=== PATIENT | female | born 1950 | race Caucasian/White ===

== ENCOUNTER → 2023-11-14 18:07 | Outpatient (REF) | payer MEDICARE, SELFPAY | LOC: WDC 18:07 | PROVIDERS: ATTENDING PHYSICIAN Internal Medicine | DX: Z12.31 Encounter for screening mammogram for malignant neoplasm of breast (principal) | CPT/HCPCS: 77063; 77067 ==

== ENCOUNTER → 2024-11-16 12:26 | Outpatient (REF) | payer MEDICARE, SELFPAY | LOC: WDC 12:26 | PROVIDERS: ATTENDING PHYSICIAN Internal Medicine | DX: Z12.31 Encounter for screening mammogram for malignant neoplasm of breast (principal) | CPT/HCPCS: 77063; 77067 ==

== ENCOUNTER 2025-03-23 06:34 | Day surgery (SDC) | payer MEDICARE, SELFPAY | END 2025-03-23 13:23 | disposition home or self-care (01) | LOC: GI 06:34 | PROVIDERS: ATTENDING PHYSICIAN Internal Medicine | DX: Z12.11 Encounter for screening for malignant neoplasm of colon (principal); K64.9 Unspecified hemorrhoids; K63.89 Other specified diseases of intestine; K57.30 Diverticulosis of large intestine without perforation or abscess without bleeding; D12.0 Benign neoplasm of cecum; Z86.0101 Personal history of adenomatous and serrated colon polyps | CPT/HCPCS: 45380; 88305 ==

== ENCOUNTER 2025-08-07 18:43 | Inpatient (IN) | payer MEDICARE, SELFPAY ==
[2025-08-07] VITALS (12 sets, daily range): BP systolic 116–150; BP diastolic 54–87; BMI 26.8; BMI 25.9
[2025-08-07] MEDS: NSS 1000 IV ×2 (12:23→21:16)
[2025-08-07] MEDS: ZOFRAN 4 MG IV (12:30)
--- NOTE | 2025-08-07 12:31 | ED.GENMED ---
History of Present Illness
<Everett Yo MD - Last Filed: 08/07/25 15:42>
General
Chief Complaint: Abdominal Symptoms
Source: patient
Exam Limitations: none
Time Seen by Provider: 08/07/25 12:08
Nursing documentation reviewed up to this point in time: agreed with
History of Present Illness
History of Present Illness:
74-year-old female with past medical history as noted significant for prior colonic resection, hiatal hernia repair, prior hysterectomy who presents to the emergency department for evaluation of abdominal pain. Patient reports symptoms started
around 2 AM, woke her up from sleep and have been constant since that time. Pain located in the upper abdomen and radiates across. No exacerbating relieving factors. She reports profuse nonbloody vomitus this morning. She denies any diarrhea or
constipation�did not have a bowel movement today. She denies any fever or chills. No urinary symptoms. She said she had a similar episode of pain while in [place] 7 years ago�she says that she was told that she had 'twisting of the stomach' and
required emergency surgery.
Past History
<Everett Yo MD - Last Filed: 08/07/25 15:42>
Past History
ED Past Medical History: Negative Asthma, HTN, Hypercholesterolemia or NIDDM
ED Past Surgical History: Appendectomy, Gynecological (Tubel) and Other (Abscess of colon removed)
Social History
Tobacco: Non-smoker
Alcohol: Occasional
Personal:
Living: alone
Employment: Employed
Review of Systems
<Everett Yo MD - Last Filed: 08/07/25 15:42>
Review of Systems
All Other Systems: ROS reviewed and negative except as documented in HPI and ROS
Constitutional: Denies fever or chills
Respiratory: Denies trouble breathing
Cardiac: Denies chest pain
ABD/GI: Reports abdominal pain, nausea and vomiting; Denies diarrhea or constipated
: Denies dysuria, frequency, flank pain or bleeding
Musculoskeletal: Denies neck pain or back pain
Neurological: Reports headache; Denies dizzy
Phy Exam
<Everett Yo MD - Last Filed: 08/07/25 15:42>
Physical Exam
Physical Exam:
General: Awake, alert; sitting up holding emesis bag
Head: Normocephalic, atraumatic
Eyes: Conjunctiva normal, sclera anicteric
Throat: Airway intact, handling secretions
Neck: Trachea midline, supple without meningismus
Lungs: Clear to auscultation bilaterally, no wheezing, rales, rhonchi
Heart: Tachycardia with regular rhythm, no murmurs, gallops, or rubs
Abd: Soft, non distended, tender to palpation right upper quadrant and epigastrium with no peritoneal signs
Neuro: Grossly intact
Skin: Warm and dry
Extremities: Warm and well-perfused
Scores
<Everett Yo MD - Last Filed: 08/07/25 15:42>
Heart Failure Risk
Heart Failure Risk Score: Not Applicable
Heart Score for Chest Pain Patients
STEMI patient?: Not applicable
Withdrawal Assessment of Alcohol
Withdrawal Assessment Completed?: Not applicable
Course
<Everett Yo MD - Last Filed: 08/07/25 15:42>
Orders/Labs/Results
Orders:
Orders
08/07/25 12:22
0.9% Sodium Chloride 1000 ml [Nss] 1,000 ml IV BOLUS
08/07/25 12:24
CT Abd/pelvis W Iv Cont Urgent
Comment:
Reason For Exam: abd pain, N/V
Ondansetron Injectable [Zofran] 4 mg .ROUTE .[facility] ONE
Ondansetron Injectable [Zofran] 4 mg IV NOW STA
08/07/25 12:25
Electrocardiogram (*1) Urgent
Reason for Study: Abdominal Pain
EKG- Treatment ONCE
08/07/25 12:27
Complete Blood Count/With Diff Urgent
Comprehensive Metabolic Panel Urgent
Lactate Level [Lactic Acid] Urgent
Lipase Urgent
Troponin I Urgent
08/07/25 12:50
Urinalysis Reflex To Culture Urgent
Date Specimen was Collected: 08/07/25
Time Specimen was Collected: 12:37
Urine Microscopic Reflex Cult Urgent
08/07/25 14:21
US Abdomen Complete/Upper Urgent
Comment:
Reason For Exam: right sided abd pain, tenderness
08/07/25 15:08
Piperacillin/Tazo 3.375 Gram [Zosyn] 3.375 gram in 50 ml IV NOW
08/07/25 15:09
SURGICAL CONSULT Urgent
Consulting Provider: Kishan Ewing
Was physician already notified: Yes
08/07/25 16:03
Diphenhydramine [Benadryl] 50 mg .ROUTE .[facility] ONE
08/07/25 16:04
Diphenhydramine [Benadryl] 25 mg IV NOW STA
08/07/25 16:05
Dexamethasone Sod Phosphate [Decadron] 10 mg IV NOW STA
Diphenhydramine [Benadryl] 25 mg IV NOW STA
Famotidine [Pepcid] 20 mg IV NOW STA
Abnormal Lab Results
08/07/25 08/07/25
12:27 12:50
MPV 11.3 H fL
(7.4-10.4)
Absolute Neuts (auto) 9.4 H 10^3/uL
(1.4-6.5)
Absolute Lymphs (auto) 1.1 L 10^3/uL
(1.2-3.4)
Neutrophils % 87.0 H %
(42.2-75.2)
Lymphocytes % 10.0 L %
(20.5-51.1)
Sodium 131 L mmol/L
(135-145)
Chloride 96 L mmol/L
(98-107)
Glucose 106 H mg/dl
(70-99)
Total Bilirubin 1.4 H mg/dl
(0.2-1.3)
Urine Ketones 3+ A
(Negative)
Ur Occult Blood Reflex 2+ A
(Negative)
Urine RBC 7-10 A /HPF
(0-2)
Urine Bacteria (Reflex) Few A
(Negative)
Urine Albumin (Reflex) 1+ A
(Neg - Trace)
08/07/25 12:27
08/07/25 12:27
Vital Signs
Initial and Last Documented VS:
Initial Vital Signs
Temp Pulse Resp BP Pulse Ox
98.2 F 119 16 127/83 96
08/07/25 11:59 08/07/25 11:59 08/07/25 11:59 08/07/25 11:59 08/07/25 11:59
Last Documented Vital Signs
Temp Pulse Resp BP Pulse Ox
98.2 F 120 22 126/68 98
08/07/25 11:59 08/07/25 16:00 08/07/25 16:00 08/07/25 16:00 08/07/25 16:00
<Robel Villafana, DO - Last Filed: 08/07/25 16:44>
Orders/Labs/Results
Orders:
Orders
08/07/25 12:22
0.9% Sodium Chloride 1000 ml [Nss] 1,000 ml IV BOLUS
08/07/25 12:24
CT Abd/pelvis W Iv Cont Urgent
Comment:
Reason For Exam: abd pain, N/V
Ondansetron Injectable [Zofran] 4 mg .ROUTE .[facility]
Ondansetron Injectable [Zofran] 4 mg IV NOW STA
08/07/25 12:25
Electrocardiogram (*1) Urgent
Reason for Study: Abdominal Pain
EKG- Treatment ONCE
08/07/25 12:27
Complete Blood Count/With Diff Urgent
Comprehensive Metabolic Panel Urgent
Lactate Level [Lactic Acid] Urgent
Lipase Urgent
Troponin I Urgent
08/07/25 12:50
Urinalysis Reflex To Culture Urgent
Date Specimen was Collected: 08/07/25
Time Specimen was Collected: 12:37
Urine Microscopic Reflex Cult Urgent
08/07/25 14:21
US Abdomen Complete/Upper Urgent
Comment:
Reason For Exam: right sided abd pain, tenderness
08/07/25 15:08
Piperacillin/Tazo 3.375 Gram [Zosyn] 3.375 gram in 50 ml IV NOW
08/07/25 15:09
SURGICAL CONSULT Urgent
Consulting Provider: Kishan Ewing
Was physician already notified: Yes
08/07/25 16:03
Diphenhydramine [Benadryl] 50 mg .ROUTE .[facility]
08/07/25 16:04
Diphenhydramine [Benadryl] 25 mg IV NOW STA
08/07/25 16:05
Dexamethasone Sod Phosphate [Decadron] 10 mg IV NOW STA
Diphenhydramine [Benadryl] 25 mg IV NOW STA
Famotidine [Pepcid] 20 mg IV NOW STA
Abnormal Lab Results
08/07/25 08/07/25
12:27 12:50
MPV 11.3 H fL
(7.4-10.4)
Absolute Neuts (auto) 9.4 H 10^3/uL
(1.4-6.5)
Absolute Lymphs (auto) 1.1 L 10^3/uL
(1.2-3.4)
Neutrophils % 87.0 H %
(42.2-75.2)
Lymphocytes % 10.0 L %
(20.5-51.1)
Sodium 131 L mmol/L
(135-145)
Chloride 96 L mmol/L
(98-107)
Glucose 106 H mg/dl
(70-99)
Total Bilirubin 1.4 H mg/dl
(0.2-1.3)
Urine Ketones 3+ A
(Negative)
Ur Occult Blood Reflex 2+ A
(Negative)
Urine RBC 7-10 A /HPF
(0-2)
Urine Bacteria (Reflex) Few A
(Negative)
Urine Albumin (Reflex) 1+ A
(Neg - Trace)
08/07/25 12:27
08/07/25 12:27
Vital Signs
Initial and Last Documented VS:
Initial Vital Signs
Temp Pulse Resp BP Pulse Ox
98.2 F 119 16 127/83 96
08/07/25 11:59 08/07/25 11:59 08/07/25 11:59 08/07/25 11:59 08/07/25 11:59
Last Documented Vital Signs
Temp Pulse Resp BP Pulse Ox
98.2 F 120 22 126/68 98
08/07/25 11:59 08/07/25 16:00 08/07/25 16:00 08/07/25 16:00 08/07/25 16:00
<Everett Yo MD - Last Filed: 08/07/25 15:42>
MDM/Problems Addressed
Differential Diagnosis Includes:
Gastritis, bowel obstruction, pancreatitis, cholelithiasis, cholecystitis, enteritis; less likely anginal equivalent
MDM/Problems Addressed:
74-year-old female with history as noted presents for evaluation of upper abdominal pain associated with nausea and vomiting. She is tachycardic but otherwise normal vitals. Physical exam as above. Plan to check labs including CBC and CMP,
lipase. Check an EKG and troponin. Will check CT abdomen. Provide fluids and antiemetic. Reassess after the above.
Labs reviewed: CBC and CMP no clinically significant abnormalities no clinically significant abnormalities. T. bili top normal but transaminases normal, lipase her urinalysis shows no signs of infection. CT showed constipation and question
gallbladder wall thickening, no other acute abnormalities. Will send for dedicated ultrasound of the upper abdomen as clinical picture is concerning for cholecystitis as she is tender in the right upper quadrant with nausea and vomiting. On
clinical reassessment patient appears better after Zofran, vital signs stable.
Ultrasound reviewed she does appear to have gallbladder wall thickening on ultrasound and she is tender persistently with continued tachycardia and top normal WBC. Overall concern for cholecystitis. Case discussed with general surgery for
consultation. Will provide IV antibiotics.
<Everett Yo MD - Last Filed: 08/07/25 15:42>
*Radiology
Radiology exam reviewed: radiology read reviewed
*Pulse Oximetry
SaO2: 96
Oxygen Mode of Delivery: Room air
Patient hypoxic: no (96%)
*EKG
Interpreted by ED Provider?: Yes
Heart Rate: 103
Rate: tachycardiac
Rhythm: sinus and sinus tachycardia
Cascade: normal axis
Interval: normal interval and long QT
QRS Pattern: normal QRS
Ischemia: no ischemia
*Critical Care Note
Total Time (30-74mins, 75-104mins- exclusive of procedures): Not Applicable
Data Reviewed
Review of Other/Old Records Reveals: Labs and Records
Source: patient and records
<Everett Yo MD - Last Filed: 08/07/25 15:42>
Patient Management
Discussion with other providers: Hospitalist (Discussed with hospitalist-General Surgery will reach out for hospitalist admission if IOC positive) and Back Pad Inspector (Discussed with general surgeon)
Escalation/DeEscalation of care consider admission/obs:
Admission indicated
<Robel Villafana DO - Last Filed: 08/07/25 16:44>
Update Note
Update Note:
Patient with allergic reaction to tachycardia, erythema and urticaria after receiving Zosyn. Zosyn discontinued. Lungs clear, no airway edema. She feels better after receiving IV Benadryl, Pepcid and Decadron. Discussed with Dr. Ewing who will
decide on OR today or tomorrow.
ED Attending Note
<Everett Yo MD - Last Filed: 08/07/25 15:42>
-
Portions of this chart may have been created with voice recognition software.� Occasional wrong word or��sound alike� substitutions may have occurred due to the inherent limitations of voice recognition software.
Discharge Plan
Departure
Patient Disposition: Admit
Date of Disposition: 08/07/25
Time of Disposition: 15:36
Admit to doctor: Kaylin
Presentation/result/management discussed w/ accepting MD/DO: Surgery
Discharge Problem:
Acute cholecystitis
Prescriptions:
No Action
acetaminophen 325 MG tablet
650 mg PO Q4HPRN PRN (Reason: mild to moderate pain) Qty: 1 0RF
ibuprofen 200 MG tablet
400 - 600 mg PO Q6HPRN PRN (Reason: mild to moderate pain) Qty: 1 0RF
Referrals:
José Miguel Mccormack MD [Family Provider, Internal Medicine]
Interventions
Interventions:
*General Assessment Last Done: 08/07/25 12:12
*Neglect/Abuse Screening Last Done: 08/07/25 13:24
*ED- Fall Risk Assessment Last Done: 08/07/25 12:12
*ED COVID-19 Vaccine History Last Done: 08/07/25 12:12
*ED Influenza Vaccine History Last Done: 08/07/25 12:12
TX-Ifpwys-[id number] Assessment Last Done: 08/07/25 12:30
Discharge Date and Time
Print Language: TONGAN
[2025-08-07 12:33] LABS: Hematocrit 39.0 % (37.0-47.0); Hemoglobin 13.1 g/dL (12.0-16.0); Mean Corp Hgb Conc. 33.6 g/dL (33.0-37.0); Mean Corpuscular Volume 89.9 fL (81.0-99.0); Nucleated Red Blood Cells % 0 %; Platelet Count 240 10^3/uL (130-400); Red Cell Dist. Width 13.1 % (11.5-14.5)
[2025-08-07 12:46] LABS: ALT (SGPT) 19 U/L (0-35); AST (SGOT) 27 U/L (14-36); Albumin 5.0 g/dl (3.5-5.0); Alkaline Phosphatase 74 U/L (38-126); Blood Urea Nitrogen 10 mg/dl (7-17); Calcium 9.5 mg/dl (8.4-10.2); Carbon Dioxide 25 mmol/L (22-30); Chloride 96 mmol/L (98-107); Estimated Creatinine Clearance 82 ml/min; Glucose 106 mg/dl (70-99); Lipase 93 U/L (23-300); Potassium 4.0 mmol/L (3.5-5.1); Sodium 131 mmol/L (135-145); Total Protein 8.1 g/dl (6.3-8.2); eGFR > 60.00
[2025-08-07 13:04] LABS: Troponin I < 0.012 ng/ml
[2025-08-07 13:05] LABS: Urine Character Clear (Clear)
[2025-08-07] MEDS: ZOSYN 50 IV (15:43)
[2025-08-07] MEDS: BENADRYL 25 MG IV (16:05)
[2025-08-07] MEDS: PEPCID 20 MG IV (16:13)
[2025-08-07] MEDS: DECADRON 10 MG IV (16:17)
--- NOTE | 2025-08-07 17:59 | CON.GS ---
Medical History
-
Chief Complaint: Abdominal pain
History of Present Illness:
Patient is a 74 yo F with a PMH of perforated diverticulitis s/p open colectomy c/b incisional hernia s/p robotic IPOM repair with Ventralight ST 20 x [address] Esparza, paraesophageal hernia s/p laparoscopic repair, s/p appendectomy, and s/p
tubal ligation. Ms. Valencia presents with 24 hours of abdominal pain. She states that she had pizza yesterday evening. This morning at approximately 2 AM she woke in with severe pain in her epigastrium and radiating to her mid back. Currently
continuing to have pain. She also is uncomfortable due to an allergic reaction to a recent dose of Zosyn. She denies any jaundice, pale stools, or tea colored urine. Associated nausea and vomiting. No fevers or chills. She denies any prior
attacks of abdominal pain or discomfort.
Past Medical History
Past Medical History: None
Past Surgical History: Appendectomy, Bowel Resection (Open partial colectomy), Gynecological (Tubal ligation) and Hernia Repair (Ventral incisional hernia with IPOM mesh repair using Ventralight ST 20 x 15 cm mesh, laparoscopic hiatal hernia repair)
Social History
Tobacco: Non-Smoker
Alcohol: Occasional
Drug: None
Family History
Family History: Reviewed & Noncontributory
Allergies / Home Medications
Allergy/AdvReac Type Severity Reaction Status Date / Time
piperacillin (From Zosyn) Allergy Rash Verified 08/07/25 17:38
tazobactam (From Zosyn) Allergy Rash Verified 08/07/25 17:38
�Medication �Instructions �Recorded �Confirmed �Type
acetaminophen 325 mg tablet 650 mg (2 x 325 mg) PO Q4HPRN PRN 04/07/19 08/07/25 Rx
mild to moderate pain #1 tab
ibuprofen 200 mg tablet 400 - 600 mg (2 - 3 x 200 mg) PO 04/07/19 08/07/25 Rx
Q6HPRN PRN mild to moderate pain
#1 tab
Review of Systems
-
A 10 point review of systems was completed, and was negative except as per HPI.
Physical Exam
Vital Signs
Temp Pulse Resp BP Pulse Ox
98.2 F 101 20 129/71 98
08/07/25 11:59 08/07/25 17:00 08/07/25 17:00 08/07/25 17:00 08/07/25 17:00
08/06/25 08/07/25 08/08/25
06:59 06:59 06:59
Actual Weight 77.6 kg
Body Mass Index (BMI) 26.8
Lab Results
08/07/25 12:27
08/07/25 12:27
WBC 10.8 10^3/uL (4.8-10.8) 08/07/25 12:27
Hgb 13.1 g/dL (12.0-16.0) 08/07/25 12:27
Hct 39.0 % (37.0-47.0) 08/07/25 12:27
Plt Count 240 10^3/uL (130-400) 08/07/25 12:27
Abs Immat Gran (auto) 0.0 10^3/uL (0-0.05) 08/07/25 12:27
Neutrophils % 87.0 % (42.2-75.2) H 08/07/25 12:27
Physical Exam
General: Well Developed and Well Nourished
HEENT: Other (Erythematous face)
Respiratory: Accessory Resp Muscle Use
Cardiac: Irregular Rhythm (Tachycardic)
GI: Soft, Non Distended, Tender (Epigastrium and RUQ, negative Desir sign) and Other (Nonperitoneal)
Musculoskeletal: No Edema
Skin: Warm, Dry and Rash
Neuro: Nonfocal/Grossly Intact
Data Reviewed
-
CT Scan: Image Personally Visualized and interpreted and Report Reviewed by me
Ultrasound: Image Personally Visualized and interpreted and Report Reviewed by me
Labs: Labs Reviewed by me
Old Records: Reviewed
Assessment / Plan
-
Patient is a 74 yo F p/w acute cholecystitis, possible choledocholithiasis
The natural history and pathophysiology of biliary and stone disease was briefly discussed. Anatomy was reviewed. Workup thus far including labs and ultrasound were reviewed. Options for management were briefly reviewed. Recommend
cholecystectomy. Timing TBD based on recovery from current anaphylactic reaction, would delay surgery till at least tomorrow given her current issues. There is also some concern for possible choledocholithiasis given her dilated CBD and elevated
bilirubin. Plan to repeat labs tomorrow. All questions answered.
-- Hospitalist admit, appreciate help
-- NPO, IVF
-- Antibiotics: Ciprofloxacin and Flagyl
-- Repeat labs in AM
--- NOTE | 2025-08-07 18:15 | HPS.HSE ---
Addendum entered and electronically signed by Aracelis Portillo MD 08/07/25 19:17:
This is an addendum to the H&P written by Heather Castelan on 08/07/2025. �Patient seen and examined independently with PA.
74-year-old female past medical history of osteoarthritis, spinal stenosis, hiatal hernia status post surgery presenting with abdominal pain right upper quadrant. �Multiple episodes of vomiting. �No fevers or chills.
Slight tachycardia. �Labs unremarkable apart from bilirubin 1.4.
Abdominal ultrasound shows echogenic material consistent with sludge cannot exclude tiny gravel like stones. �Mild gallbladder wall thickening positive sonographic Desir sign. �No signs of biliary tract dilatation.
Patient with biliary colic/acute cholecystitis. �Patient developed allergic reaction to Zosyn with facial swelling, tongue swelling and rash. �She got Decadron and Benadryl and Pepcid with improvement.
Will now treat with ciprofloxacin/Flagyl. �N.p.o., IV fluids, general surgery planning on surgery tomorrow.
Original Note:
Family Physician
-
Family Physician: Marcial Mccormack
Chief Complaint
-
Abdominal Pain
History of Present Illness
Patient is a 74 y/o female past medical history of osteoarthritis and spinal stenosis who presents with abdominal pain. Patient reports acute onset of right upper quadrant abdominal pain that awoke her from sleep around 2AM. She reports multiple
episodes of vomiting. She denies fevers, sweats or chills.
While in the emergency department received a dose of piperacillin/tazobactam. Following administration of the medication patient developed rash, and facial swelling. Patient denies any prior allergic reactions, and notes she has taken amoxicillin
prior to dental procedures for many years.
Medical History
Past Medical History
Past Medical History: Reports Other
Additional Past Medical History:
Osteoarthritis
Spinal Stenosis
Past Surgical History: Reports Other
Additional Past Surgical History:
Bilateral Hip Replacement
Ankle Surgery
Back Surgery
Hiatal Hernia Repair
Incisional Hernia Repair
Colon Resection
Hysterectomy
Social History
Tobacco: Non-smoker
Alcohol: Occasional (About once a week)
Family History
Family History: Not pertinent
Allergies / Home Medications
Allergies reflects when Allergies were last updated in [facility].
Home Medications with original date entered in [facility]
Allergy/Medication List:
Allergies
Allergy/AdvReac Type Severity Reaction Status Date / Time
piperacillin (From Zosyn) Allergy Rash Verified 08/07/25 17:38
tazobactam (From Zosyn) Allergy Rash Verified 08/07/25 17:38
Home Medications
acetaminophen 325 mg tablet 650 mg (2 x 325 mg) PO Q4HPRN PRN mild to moderate pain #1 tab 04/07/19
ibuprofen 200 mg tablet 400 - 600 mg (2 - 3 x 200 mg) PO Q6HPRN PRN mild to moderate pain #1 tab 04/07/19
Review of Systems
-
History Source: Patient
A 12 point ROS was completed and negative except as noted: Yes
Constitutional: Denies Fever or Chills
Respiratory: Denies Cough or Trouble Breathing
Cardiac: Denies Chest Pain or Palpitations
Abdomen/GI: Reports Abdominal Pain, Nausea and Vomiting
Physical Exam
Vital Signs
Vital Signs
Temp Pulse Resp BP Pulse Ox
98.2 F 101 20 129/71 98
08/07/25 11:59 08/07/25 17:00 08/07/25 17:00 08/07/25 17:00 08/07/25 17:00
Physical Exam
General: Well Developed, Well Nourished and No Apparent Distress
HEENT: NormoCephalic, Anicteric, Moist mucous membranes and Atraumatic
Respiratory: Clear and Non Labored Respirations; No Wheezes, Rales or Rhonchi
Cardiac: S1/S2 and Regular Rhythm; No Murmur
GI: Soft and Tender (Right Upper Quadrant)
Rectal: Deferred by Provider
Musculoskeletal: No Clubbing, No Cyanosis and No Edema
Skin: Warm, Dry and Rash (Facial Rash across cheeks and nose)
Neuro: Awake, Alert, Oriented and Nonfocal/grossly intact
Psych: Calm
Laboratory Results
-
08/07/25 12:
08/07/25 12:
Laboratory Results
Lactic Acid 1.0 mmol/L (0.7-2.0) 08/07/25 12:
Total Bilirubin 1.4 mg/dl (0.2-1.3) H 08/07/25 12:
AST 27 U/L (14-36) 08/07/25 12:
ALT 19 U/L (0-35) 08/07/25 12:
Alkaline Phosphatase 74 U/L (38-126) 08/07/25 12:27
Troponin I < 0.012 ng/ml 08/07/25 12:27
Lipase 93 U/L (23-300) 08/07/25 12:27
Abdomen US:
Low level echogenic material most likely representing sludge, cannot exclude tiny gravel-like stones. Mild gallbladder wall thickening and positive sonographic Desir's sign. No findings to suggest biliary tract dilatation., Tail echoes of the
gallbladder suggesting adenomyomatosis. Findings could represent acute cholecystitis.
Data Reviewed
-
CT Scan: Report Reviewed by me
Ultrasound: Report Reviewed by me
Lab Data: Labs Reviewed by me
Impression/Plan
-
Acute Cholecystitis
-Consult General Surgery
-Continue NPO/IVF
-Continue
-Continue Tigan for Nausea
-Continue Tylenol for mild pain, toradol for moderate pain, and morphine for severe pain
Allergic Reaction to Zosyn
-Patient received Decadron, Pepcid and Benadryl in ED with improvement in symptoms
-Continue Benadryl prn
Prolonged QT
-Recheck ECG in AM
Hyponatremia, mild
-Continue IVFs
-Recheck in AM
DVT proph: SCDs
Code Status: Full Code
[2025-08-07] MEDS: CIPRO 400 MG 200 IV (21:17)
--- NOTE | 2025-08-07 21:38 | TRANSFER ---
Received patient from ED at 1930 dx acute cholecystitis. Pt denied pain at time of assessment. Skin with pinkish- red appearance - Pt stated she had a reaction to Zosyn in ED. VS WNL. Administered Cipro and stayed with pt at bedside - no adverse
reactions noted. Call beltran within reach, bed in lowest position.
[2025-08-07] MEDS: FLAGYL 500 MG 100 IV (22:44)
[2025-08-08] VITALS (11 sets, daily range): BP systolic 113–152; BP diastolic 51–83
[2025-08-08 06:11] LABS: Hematocrit 36.2 % (37.0-47.0); Hemoglobin 12.0 g/dL (12.0-16.0); Mean Corp Hgb Conc. 33.1 g/dL (33.0-37.0); Mean Corpuscular Volume 93.5 fL (81.0-99.0); Platelet Count 217 10^3/uL (130-400); Red Cell Dist. Width 13.2 % (11.5-14.5)
[2025-08-08] MEDS: FLAGYL 500 MG 100 IV (06:11)
[2025-08-08 06:45] LABS: ALT (SGPT) 15 U/L (0-35); AST (SGOT) 20 U/L (14-36); Albumin 3.9 g/dl (3.5-5.0); Alkaline Phosphatase 54 U/L (38-126); Blood Urea Nitrogen 10 mg/dl (7-17); Calcium 9.0 mg/dl (8.4-10.2); Carbon Dioxide 26 mmol/L (22-30); Chloride 105 mmol/L (98-107); Estimated Creatinine Clearance 82 ml/min; Glucose 128 mg/dl (70-99); Potassium 4.0 mmol/L (3.5-5.1); Sodium 137 mmol/L (135-145); Total Protein 6.4 g/dl (6.3-8.2); eGFR > 60.00
[2025-08-08] MEDS: CIPRO 400 MG 200 IV (08:23)
--- NOTE | 2025-08-08 08:23 | W.PN.HOSP.TC ---
Today's Communication/Plan
-
see plan
Assessment / Plan
Assessment / Plan
Gen: NAD, AAOx3.
Eyes: EOMI, PERRLA, no scleral icterus.
Neck: supple.
CV: RRR, +S1/S2, no m/r/g.
Resp: CTAB, no rales, wheezes, or rhonchi.
Abd: +BS, soft, NT to light palpation, ND
Skin: No rashes.
Neuro: CN 2-12 intact, non-focal.
Psych: Normal mood and affect.
Abd U/S: Low level echogenic material most likely representing sludge, cannot exclude tiny gravel-like stones. Mild gallbladder wall thickening and positive sonographic Desir's sign. No findings to suggest biliary tract dilatation., Tail echoes of
the gallbladder suggesting adenomyomatosis. Findings could represent acute cholecystitis.
CT A/P: Moderate volume widespread colonic stool. No intestinal obstruction, free air or right lower quadrant inflammatory changes. Soft tissues of true pelvis significantly obscured by marked beam hardening artifact from bilateral hip
arthroplasties. Cannot exclude mild gallbladder wall thickening. Common bile duct borderline prominent and 0.7 cm. No findings to suggest intrahepatic biliary tract dilatation. Small hiatal hernia.
Acute cholecystitis:
-cont Cipro/Flagyl (allergic reaction to Zosyn)
-surgery to take to OR this AM, discussed with Dr. Ewing
-NPO/IVFs/pain control
FULL/SCDs
Anticipated Discharge: 24 - 48 hours
Subjective/Interval History
-
Date of Service: August 08, 2025
No new complaints.
Objective Data
-
Labs:
Laboratory Results
08/08/25
05:43
WBC 7.6
Hgb 12.0
Hct 36.2 L
Plt Count 217
Sodium 137
Potassium 4.0
Chloride 105
Carbon Dioxide 26
BUN 10
Creatinine 0.6
Glucose 128 H
Calcium 9.0
Total Bilirubin 1.2
AST 20
ALT 15
Alkaline Phosphatase 54
Vital Signs:
Vital Signs
Temp Pulse Resp BP Pulse Ox
98.5 F 75 16 130/70 97
08/08/25 07:22 08/08/25 07:22 08/08/25 07:22 08/08/25 07:22 08/08/25 07:22
I&O
08/07/25 08/08/25 08/09/25
06:59 06:59 06:59
Intake Total 400 / 400
Balance 400 / 400
--- NOTE | 2025-08-08 09:20 | W.PN.GS2 ---
Today's Communication / Plan
-
-- Laparoscopic cholecystectomy with IOC
-- NPO, IVF
-- Abx: Cipro/Flagyl
Assessment / Plan
-
Patient is a 74 yo F p/w biliary colic versus acute cholecystitis
AVSS
Labs notable for normal WBC, normal Hb, platelets, normal electrolytes and renal function, normalized bilirubin, normal LFTs and ALP
The natural history and pathophysiology of biliary stone disease was discussed. Anatomy and workup thus far was reviewed. Options for management including a trial of medical management with a low-fat diet versus surgical management with
cholecystectomy were considered and discussed. The pros and cons of both approaches was discussed. Specifically, we discussed persistent discomfort during this particular attack and attacks going forward versus surgical risks. Her main surgical
risk factor is potential adhesions from her IPOM mesh repair by Dr. Perales within the vicinity of her gallbladder.
Plan for a laparoscopic cholecystectomy with possible cholangiogram. The procedure itself, as well as the risks, benefits, and alternatives was discussed. Specifically, we discussed the risks of bleeding, infection, injury to surrounding
structures (bowel, bile ducts), CBD injury, need for open procedure. Typical postprocedural recovery was discussed. All questions answered. Consent signed.
-- Laparoscopic cholecystectomy with IOC
-- NPO, IVF
-- Abx: Cipro/Flagyl
Subjective Data
-
Date of Service: August 08, 2025
No complaints. Abdominal pain has improved. No nausea or vomiting. No fevers. Symptoms post reaction to Zosyn resolved.
Objective Data
-
Intake and Output
08/07/25 08/08/25 08/09/25
06:59 06:59 06:59
Intake Total 400 / 400
Balance 400 / 400
Intake:
IV piggybacks 400 / 400
Other:
Number of approximated LARGE 1
amounts of urine
Vital Signs
Temp Pulse Resp BP Pulse Ox
98.5 F 75 16 130/70 97
08/08/25 07:22 08/08/25 07:22 08/08/25 07:22 08/08/25 07:22 08/08/25 07:22
Lab Results
08/08/25 05:43
08/08/25 05:43
Calcium 9.0 mg/dl (8.4-10.2) 08/08/25 05:43
Total Bilirubin 1.2 mg/dl (0.2-1.3) 08/08/25 05:43
Direct Bilirubin 0.1 mg/dl (0.0-0.4) 08/08/25 05:43
AST 20 U/L (14-36) 08/08/25 05:43
ALT 15 U/L (0-35) 08/08/25 05:43
Alkaline Phosphatase 54 U/L (38-126) 08/08/25 05:43
Total Protein 6.4 g/dl (6.3-8.2) D 08/08/25 05:43
Albumin 3.9 g/dl (3.5-5.0) 08/08/25 05:43
Physical Exam
-
Gen: NAD
Abd: soft, minimal tenderness, NT, non-peritoneal, prior incision well healed
Patient has a sims catheter: No
Patient has a central line: No
--- NOTE | 2025-08-08 09:27 | W.SUR.PREOP ---
Pre-Operative Surgical Note
-
I have examined this patient prior to the performance of the scheduled procedure.
The patient's condition is unchanged from the time of the current History and
Physical and the patient is able to undergo the scheduled procedure.
--- NOTE | 2025-08-08 12:31 | W.IMMPOSTOP ---
Surgical Immed Post Op Note
-
Primary Surgeon: Kaylin
Assisting Surgeon: WHITNEY Bernal
Pre-op Diagnosis: Acute cholecystitis
Post-op Diagnosis: Acute cholecystitis
Procedure Performed: Laparoscopic cholecystectomy with IOC
Anesthesia Type: General
Specimen / Cultures:
1. Gallbladder
Estimated Blood Loss: 3 cc
Complications: None
Operative Findings:
1. Dilated GB, mild wall thickening
2. Critical view, IOC with dilated CBD but no filling defect
3. Duct taken with clips and 0 PDS Endoloop, artery with clips
[2025-08-08] MEDS: ZOFRAN 4 MG IV (13:01)
--- NOTE | 2025-08-08 13:40 | PTCARENOTE ---
Received patient form PACU via bed around 1330 in stable condition. 5 lap sites to abdomen, SCRAP CRUSHER, no drainage. Patient due to void. Call beltran in reach.
[2025-08-08] MEDS: NSS 1000 IV (14:00)
--- NOTE | 2025-08-08 15:36 | CM ---
CM attempted bedside visit to complete IA
Just returned from PACU and sleeping soundly
[2025-08-08] MEDS: COMPAZINE 5 MG IV (16:44)
[2025-08-08] MEDS: LOVENOX 40 MG SC (19:42)
[2025-08-08] MEDS: TORADOL 10 MG IV (19:48)
[2025-08-08] MEDS: OFIRMEV 100 IV (21:58)
[2025-08-09] MEDS: NSS 1000 IV ×4 (01:40→21:52)
[2025-08-09 03:00] VITALS: BP 149/77
[2025-08-09] MEDS: NSS IV (06:23)
[2025-08-09 07:00] LABS: Hematocrit 35.0 % (37.0-47.0); Hemoglobin 11.5 g/dL (12.0-16.0); Mean Corp Hgb Conc. 32.9 g/dL (33.0-37.0); Mean Corpuscular Volume 92.1 fL (81.0-99.0); Platelet Count 206 10^3/uL (130-400); Red Cell Dist. Width 13.3 % (11.5-14.5)
[2025-08-09 07:15] VITALS: BP 160/84
[2025-08-09 07:19] LABS: ALT (SGPT) 86 U/L (0-35); AST (SGOT) 78 U/L (14-36); Albumin 3.7 g/dl (3.5-5.0); Alkaline Phosphatase 58 U/L (38-126); Blood Urea Nitrogen 9 mg/dl (7-17); Calcium 8.4 mg/dl (8.4-10.2); Carbon Dioxide 28 mmol/L (22-30); Chloride 103 mmol/L (98-107); Estimated Creatinine Clearance 82 ml/min; Glucose 124 mg/dl (70-99); Potassium 3.4 mmol/L (3.5-5.1); Sodium 137 mmol/L (135-145); Total Protein 6.2 g/dl (6.3-8.2); eGFR > 60.00
[2025-08-09] MEDS: TORADOL 10 MG IV (08:46)
--- NOTE | 2025-08-09 10:03 | W.PN.GS2 ---
Today's Communication / Plan
-
Dispo planning
Assessment / Plan
-
Patient is a 74 yo F p/w acute cholecystitis
POD #1 lap jun with neg IOC
N/V post op, improved today but has not tried solid food yet
AVSS
Labs notable for elevated WBC (likely reactive), stable Hb, platelets, normal renal function, mild hypokalemia, normalized bilirubin, mild transaminitis (expected
Plan:
-- Encouraged nonnarcotic analgesics, tylenol, toradol, tramadol prn
-- Laparoscopic cholecystectomy with IOC
-- Regular diet as tolerated
-- Stop ABX
-- Anticipate d/c later today once pain controlled and tolerating diet
Subjective Data
-
Date of Service: August 09, 2025
Pt seen and examined at bedside with Dr. Fitzpatrick. N/V yesterday, none this am but cautious to eat due to the severity of symptoms yesterday. Passing flatus. Tolerating sips of water. Pain present, but has declined analgesics d/t concern for nausea.
Objective Data
-
Intake and Output
08/08/25 08/09/25 08/10/25
06:59 06:59 06:59
Intake Total 400 / 400 1300 / 1300
Balance 400 / 400 1300 / 1300
Intake:
IV fluids (Total) 1200 / 1200
IV piggybacks 400 / 400 100 / 100
Other:
Number of approximated MODERATE 1
amounts of urine
Number of approximated LARGE 1
amounts of urine
Vital Signs
Temp Pulse Resp BP Pulse Ox
99.5 F 80 16 160/84 97
08/09/25 07:15 08/09/25 07:15 08/09/25 07:15 08/09/25 07:15 08/09/25 07:15
Lab Results
08/09/25 06:05
08/09/25 06:05
Calcium 8.4 mg/dl (8.4-10.2) 08/09/25 06:05
Total Bilirubin 1.2 mg/dl (0.2-1.3) 08/09/25 06:05
Direct Bilirubin 0.1 mg/dl (0.0-0.4) 08/08/25 05:43
AST 78 U/L (14-36) H 08/09/25 06:05
ALT 86 U/L (0-35) H 08/09/25 06:05
Alkaline Phosphatase 58 U/L (38-126) 08/09/25 06:05
Total Protein 6.2 g/dl (6.3-8.2) L 08/09/25 06:05
Albumin 3.7 g/dl (3.5-5.0) 08/09/25 06:05
Physical Exam
-
NAD
ABD soft, incisional tenderness, ND
Incisions well approximated with intact glue
--- NOTE | 2025-08-09 10:13 | CM ---
CM following re: discharge planning.
Reviewed pt's chart, met with pt.
Pt is a 74 year old female, admitted with primary dx of Abdominal pain. POD#1 lap jun with neg IOC. per Surgery, possible discharge later today. Pt is aware, expressed her agreement and she stated her girlfriend will transport home.
Pt reports she lives alone in an apartment, no steps, has 2 supportive children. Pt described herself as independent in all areas [employer]. No DME, VN or SNF history.
PCP: Marcial Mccormack
Pharmacy: [facility].
D/C plan: home no needs. Girlfriend to transport.
[2025-08-09] MEDS: KCL 20 MEQ PO (10:21)
[2025-08-09 11:10] VITALS: BP 126/62
--- NOTE | 2025-08-09 13:59 | W.DS.TRANS ---
DC Summary - Correctional Supervisor Lieutenant
-
Discharge Instructions:
Discharge Diagnosis/Procedures Laparoscopic cholecystectomy with cholangiogram
Diet Regular,Low Fat
Additional Diets If issues with bloating or diarrhea follow a low
-fat diet
Activity No strenuous activity
Additional Activity No heavy lifting (>20 lbs) or strenuous
activities for 2 to 3 weeks postoperatively
Bathing Restrictions OK to Shower
Wound Care Keep incisions clean and dry. Glue will flake
off in 2 to 3 weeks. Stitches will dissolve.
Use ice to the abdomen to reduce any bruising or
swelling.
Instructions:
Stand-Alone Forms:
Changes to Home Medications: No
Discharge Medications:
DC Medications w/original date entered in [facility]
acetaminophen 325 mg tablet 650 mg (2 x 325 mg) PO Q4HPRN PRN mild to moderate pain #1 tab 04/07/19
ibuprofen 200 mg tablet 400 - 600 mg (2 - 3 x 200 mg) PO Q6HPRN PRN mild to moderate pain #1 tab 04/07/19
ondansetron 4 mg disintegrating tablet 4 mg PO Q8HPRN PRN nausea/vomiting #10 tabs 08/09/25
tramadol 50 mg tablet 50 mg PO Q6H PRN severe pain 08/09/25
Home Medication Changes
Pending Results: No
[2025-08-09] MEDS: ZOFRAN 4 MG IV (14:20)
[2025-08-09 15:55] VITALS: BP 152/84
[2025-08-09] MEDS: LOVENOX 40 MG SC (17:30)
[2025-08-09 19:00] VITALS: BP 158/85
[2025-08-09] MEDS: MORPHINE SULFATE 2 MG IV (21:51)
[2025-08-09 23:02] VITALS: BP 157/76
[2025-08-10] MEDS: TORADOL 10 MG IV (03:03)
[2025-08-10 03:06] VITALS: BP 152/84
[2025-08-10 06:38] LABS: Hematocrit 36.1 % (37.0-47.0); Hemoglobin 11.8 g/dL (12.0-16.0); Mean Corp Hgb Conc. 32.7 g/dL (33.0-37.0); Mean Corpuscular Volume 94.3 fL (81.0-99.0); Platelet Count 183 10^3/uL (130-400); Red Cell Dist. Width 13.0 % (11.5-14.5)
[2025-08-10 07:02] LABS: ALT (SGPT) 87 U/L (0-35); AST (SGOT) 73 U/L (14-36); Albumin 3.7 g/dl (3.5-5.0); Alkaline Phosphatase 59 U/L (38-126); Blood Urea Nitrogen 6 mg/dl (7-17); Calcium 8.5 mg/dl (8.4-10.2); Carbon Dioxide 32 mmol/L (22-30); Chloride 104 mmol/L (98-107); Estimated Creatinine Clearance 82 ml/min; Glucose 108 mg/dl (70-99); Potassium 3.4 mmol/L (3.5-5.1); Sodium 139 mmol/L (135-145); Total Protein 6.0 g/dl (6.3-8.2); eGFR > 60.00
--- NOTE | 2025-08-10 07:02 | W.PN.GS2 ---
Today's Communication / Plan
-
-- DC today
Assessment / Plan
-
Patient is a 74 yo F p/w acute cholecystitis
POD#2 lap jun with neg IOC
AVSS
Labs notable for normalized WBC, stable Hb, platelets, hypokalemia, normal bilirubin, mild elevation in LFTs improved
Stable and eager for discharge. N/V post op related to anesthesia, resolved
Plan:
-- Regular diet
-- Pain control: Tylenol, Toradol, Tramadol prn
-- Abx: none further needed review
-- DVT: Lovenox
-- DC today
Subjective Data
-
Date of Service: August 10, 2025
Feels improved. Pain well-controlled. No nausea or vomiting overnight. Afebrile.
Objective Data
-
Intake and Output
08/09/25 08/10/25 08/11/25
06:59 06:59 06:59
Intake Total 1300 / 1300 3120 / 3120
Balance 1300 / 1300 3120 / 3120
Intake:
Oral fluids 1200 / 1200
IV fluids (Total) 1200 / 1200 1920 / 1920
IV piggybacks 100 / 100
Other:
Number of approximated MODERATE 1 5
amounts of urine
Number of immeasurable emeses? 1
Vital Signs
Temp Pulse Resp BP Pulse Ox
99.8 F 82 18 152/84 94
08/10/25 03:06 08/10/25 03:06 08/10/25 03:06 08/10/25 03:06 08/10/25 03:06
Lab Results
08/10/25 06:23
Calcium 8.4 mg/dl (8.4-10.2) 08/09/25 06:05
Total Bilirubin 1.2 mg/dl (0.2-1.3) 08/09/25 06:05
Direct Bilirubin 0.1 mg/dl (0.0-0.4) 08/08/25 05:43
AST 78 U/L (14-36) H 08/09/25 06:05
ALT 86 U/L (0-35) H 08/09/25 06:05
Alkaline Phosphatase 58 U/L (38-126) 08/09/25 06:05
Total Protein 6.2 g/dl (6.3-8.2) L 08/09/25 06:05
Albumin 3.7 g/dl (3.5-5.0) 08/09/25 06:05
Physical Exam
-
Gen: NAD
Abd: soft, minimal tenderness, ND, non-peritoneal, incisions c/d/i - no erythema, ecchymosis or drainage
Patient has a sims catheter: No
Patient has a central line: No
[2025-08-10 07:15] VITALS: BP 162/87
[2025-08-10] MEDS: ULTRAM 50 MG PO (08:46)
--- NOTE | 2025-08-10 08:50 | CM ---
CM following re: discharge planning.
Reviewed pt's chart, met with pt.
Pt is POD#2 lap jun with neg IOC. per Surgery, discharge later today. Pt is aware, expressed her agreement and she stated her girlfriend will transport home.
Pt lives alone in an apartment, no steps, has 2 supportive children. Pt described herself as independent in all areas [employer].
No after care VN needs identified.
IMM reviewed yesterday
D/C plan: home no needs. Girlfriend to transport.
[2025-08-10 11:15] VITALS: BP 166/88
== END 2025-08-10 12:01 | disposition home or self-care (01) | DRG 418 ==
LOC: 2 SOUTH 18:43
PROVIDERS: Physician Assistant Medical; Registered Nurse; ADMITTING PHYSICIAN Hospitalist; ATTENDING PHYSICIAN Surgery; EMERGENCY PHYSICIAN Emergency Medicine; FAMILY PHYSICIAN Internal Medicine
PROC: 0FT44ZZ Resection of Gallbladder, Percutaneous Endoscopic Approach (ICD-10-PCS; 2025-08-08)
PROC: BF141ZZ Fluoroscopy of Gallbladder, Bile Ducts and Pancreatic Ducts using Low Osmolar Contrast (ICD-10-PCS; 2025-08-08)
DX: K81.0 Acute cholecystitis (principal); E87.1 Hypo-osmolality and hyponatremia; E87.6 Hypokalemia
CPT/HCPCS: 74177; 74300; 76000; 76700; 80053; 81003; 81015; 82248; 83605; 83690; 84484; 85025; 85027; 88304; 93005; 96361; 96374; 96375; 99285; A4300; Q9967